=== PATIENT | male | born 1945 | race Two or more races ===

== ENCOUNTER → 2017-01-08 | Day surgery (SDC) | payer OTHER ==
[~2017-01-08] MED LIST: BUPIVACAINE/EPINEPHRINE 0.25% PF 30 ML VIAL INFIL ONE; LACTATED RINGER'S 1000 ML INJ 1,000 ML ONE; MIDAZOLAM HCL 2 MG/2 ML VIAL ONE; NEOMYCIN/POLYMYXIN/BACITRACIN OINT 15 GM TUBE ONE; ONDANSETRON HCL 4 MG/2 ML VIAL IV PUSH ONE; PROPOFOL 200 MG/20 ML AMP IV ONE; ceFAZolin 2 GM PREMIX 50 ML ONE
--- NOTE | 2017-01-08 12:06 | TN ---
cc: NASIR KIM DATE OF SURGERY: 01/08/2017 PREOPERATIVE DIAGNOSIS 1. Right shoulder basal cell carcinoma. 2. Left knee intermediate thickness melanoma. POSTOPERATIVE DIAGNOSIS 1. Right shoulder basal cell carcinoma. 2. Left knee intermediate thickness melanoma. PROCEDURE 1. Wide excision of right shoulder basal cell carcinoma with layered closure, 2 cm x 6 cm wound. 2. Wide excision of left lower extremity lateral to knee melanoma with complex closure of wound, 4 cm x 9 cm. ATTENDING SURGEON Miquel. [employer] Staff. ANESTHESIA General and local anesthetic. ESTIMATED BLOOD LOSS Less than 10 cc. COMPLICATIONS None. FINDINGS Completely grossly removed lesions of the right shoulder and left lower extremity. Significant tension on the left lateral extremity wound due to the area of limited skin mobility over the knee. 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 The patient was referred to surgical oncology for further evaluation and treatment. The risks, benefits and alternatives were discussed with the patient of wide excision, sentinel lymph node biopsy of the melanoma as well as a wide excision of the basal cell carcinoma. He agreed to undergo the procedure. Preoperatively the patient, after having undergone lymphoscintigraphy which showed mapping to the left groin, declined sentinel lymph node in lieu of alternative lymph node basin surveillance with imaging. The risks, benefits and alternatives to the node as well as alternatives to lymph node surveillance were discussed with the patient. He declined sentinel lymph node biopsy. He did wish to proceed with a wide excision of the melanoma and of the basal cell carcinoma. DETAILS OF PROCEDURE The patient was taken to the operating room, placed in a supine position and placed under general anesthesia with an LMA airway. The right shoulder and left knee and lower extremity were prepped and draped in sterile fashion. A timeout was performed. The right shoulder excision was performed first. It measured 5 mm, 360 degrees around the basal cell carcinoma on the right shoulder and excised this in an elliptical type fashion. This was done with a 15 blade scalpel followed by Bovie electrocautery and was passed off as a suture-oriented specimen. We did also use local anesthetic at this site as well as the knee site prior to excision. We had excellent hemostasis. We were able to close this easily with really no tension at all with a deep dermal 3-0 Vicryl suture followed 4-0 Monocryl and Steri-Strips. Dressing of border gauze was applied to the right shoulder as well. We then turned our attention towards the left knee. We marked this at least 1 cm or larger 360 degrees around the patient's previous melanoma and biopsy site. We did not go larger as we would be unable to close the wound over the knee. The patient did wish to avoid a skin graft or any advanced tissue techniques and favored primary closure. We excised this with a 15 blade scalpel followed by Bovie electrocautery down to the fascia of the thigh. This was marked with a stitch superior and passed off for permanent processing. We got excellent hemostasis with the Bovie electrocautery. We did extensive undermining with the Bovie down over the patella and up over the left thigh. We also closed this with deep dermal 0 Vicryl sutures as well as multiple 2-0 nylon retention sutures. We placed antibacterial ointment, border gauze and an Remington wrap over the knee. The patient tolerated this procedure well and was transferred to the recovery room in stable condition. There were no apparent complications. All counts were correct. I was present and scrubbed for the entire procedure. MD AN Russell/YANA /11:32 AM /11:50 AM [id number]
== END | disposition home or self-care (01) ==
LOC: ESDC 06:46
PROVIDERS: ATTEND Surgery
DX: C44.612 Basal cell carcinoma of skin of right upper limb, including shoulder (principal); C43.72 Malignant melanoma of left lower limb, including hip
CPT/HCPCS: 00400; 11606; 12032; 13121; 88305; J0690; J2250; J2405; J3010; J7120